=== PATIENT | female | born 1995 | race Caucasian/White ===

== ENCOUNTER 2018-03-27 17:28 | Emergency (ER) | payer MEDICAID ==
[~2018-03-27] VITALS: Ht 149.9 cm; Wt 71.0 kg
[2018-03-27 17:36] VITALS: BP 126/84
== END 2018-03-27 18:35 | disposition home or self-care (01) ==
LOC: ER 17:28
DX: B08.4 Enteroviral vesicular stomatitis with exanthem (principal)
CPT/HCPCS: 99281

== ENCOUNTER 2018-09-04 00:34 | Emergency (ER) | payer MEDICAID ==
[~2018-09-04] VITALS: Ht 175.3 cm; Wt 75.0 kg
[2018-09-04] MEDS ORDERED: LORazepam 0.5 MG tablet PO PRN (02:55)
[2018-09-04 03:44] VITALS: BP 119/74
== END 2018-09-04 03:48 | disposition home or self-care (01) ==
LOC: ER 00:35
DX: F41.9 Anxiety disorder, unspecified (principal)
CPT/HCPCS: 71045; 99284

== ENCOUNTER 2018-12-05 21:06 | Emergency (ER) | payer MEDICAID ==
[~2018-12-05] VITALS: Ht 149.9 cm; Wt 64.0 kg
[2018-12-05 21:28] VITALS: BP 136/72
[2018-12-06] MEDS ORDERED: ibuprofen tablet 400 MG TABLET PO ONE
[2018-12-06] MEDS ORDERED: acetaminophen 325mg tablet PO ONE
== END 2018-12-06 00:25 | disposition home or self-care (01) ==
LOC: ER 21:06
DX: M54.89 Other dorsalgia (principal)
CPT/HCPCS: 99283

== ENCOUNTER 2022-04-29 18:54 | Emergency (ER) | payer MEDICAID ==
[~2022-04-29] VITALS: Ht 154.9 cm; Wt 90.9 kg
[2022-04-29 19:02] VITALS: BP 132/69
[2022-04-29] MEDS ORDERED: diphenhydrAMINE 25mg capsule PO ONE (19:45)
[2022-04-29] MEDS ORDERED: predniSONE 20 mg tablet PO ONE (19:45)
[2022-04-29] MEDS ORDERED: METH4TAB3 PO (19:45)
== END 2022-04-29 20:21 | disposition home or self-care (01) ==
LOC: ER 18:55
DX: T78.49XA Other allergy, initial encounter (principal); F41.9 Anxiety disorder, unspecified; Z79.899 Other long term (current) drug therapy
CPT/HCPCS: 99283; J7512; Q0163

== ENCOUNTER 2022-05-01 00:07 | Emergency (ER) | payer MEDICAID ==
[~2022-05-01] VITALS: Ht 154.9 cm; Wt 89.2 kg
[~2022-05-01 00:07] MED LIST: METH4TAB3 PO
[2022-05-01] MEDS ORDERED: LIDO30CR TOP (00:43)
[2022-05-01 01:19] VITALS: BP 124/74
[2022-05-01] MEDS: LIDOCAINE 5% OINTMENT 35GM TP ONE (01:19)
== END 2022-05-01 01:21 | disposition home or self-care (01) ==
LOC: ER 00:08
DX: R21 Rash and other nonspecific skin eruption (principal); F41.9 Anxiety disorder, unspecified; Z79.899 Other long term (current) drug therapy
CPT/HCPCS: 99283